=== PATIENT | male | born 1995 | race Two or more races ===

== ENCOUNTER 2023-02-17 21:28 | Emergency (ER) | payer MEDICAID ==
[~2023-02-17] VITALS: Ht 170.2 cm; Wt 99.8 kg
--- NOTE | 2023-02-17 21:53 | NUR ---
Dr. Li at bedside for MSE.
[2023-02-17] MEDS ORDERED: ASPIRIN 81 MG TAB.CHEW ONE (21:54)
[2023-02-17] MEDS ORDERED: ALPRAZOLAM 0.5 MG TABLET ONE (21:55)
[2023-02-17] MEDS ORDERED: ALPRAZOLAM 0.25 MG TABLET PO ONE (22:00)
[2023-02-17] MEDS ORDERED: ASPIRIN 81 MG TAB.CHEW PO ONE (22:00)
[2023-02-17 22:01] LABS: HEMATOCRIT 44.8 % (36.7-47.1); MEAN CORPUSCULAR HEMOGLOBIN 29.5 uug (23.8-33.4); MEAN CORPUSCULAR VOLUME 86.8 fL (73.0-96.2); PLATELET COUNT (AUTO) 254 K/uL (152-348)
[2023-02-17 22:09] LABS: CARBON DIOXIDE 25 mmol/L (21-32); CHLORIDE 101 mmol/L (98-107); GLUCOSE 101 mg/dL (74-106); POTASSIUM 3.6 mmol/L (3.5-5.1); UREA NITROGEN, BLOOD 17 mg/dL (7-18)
[2023-02-17 22:22] LABS: ALANINE AMINOTRANSFERASE 34 U/L (16-63); ALKALINE PHOSPHATASE 89 U/L (50-136); ASPARTATE AMINOTRANSFERASE 8 U/L (15-37); BILIRUBIN,DIRECT 0.1 mg/dL (0.0-0.2); BILIRUBIN,TOTAL 0.5 mg/dL (0.2-1.0); TOTAL PROTEIN, SERUM 7.8 g/dL (6.4-8.2)
--- NOTE | 2023-02-18 00:55 | NUR ---
Patient discharged to home in stable condition. Written and verbal after care instructions given. Patient verbalizes understanding of instructions. Stressed follow up or return to ER for worsening s/s. Patient provided with copies of lab, xray, and ekg results, VSS, no acute signs of distress, all belongings taken.
[2023-02-18 00:56] VITALS: BP 130/75
== END 2023-02-18 00:56 | disposition home or self-care (01) ==
LOC: ER 21:28
DX: R00.2 Palpitations (principal); R07.9 Chest pain, unspecified; R20.2 Paresthesia of skin; R94.31 Abnormal electrocardiogram [ECG] [EKG]; Z88.0 Allergy status to penicillin
CPT/HCPCS: 36415; 71045; 84484; 85025; 93005; A4663

== ENCOUNTER 2023-03-02 13:33 | Emergency (ER) | payer MEDICAID ==
[~2023-03-02] VITALS: Ht 170.2 cm; Wt 99.8 kg
--- NOTE | 2023-03-02 13:52 | NUR ---
V/S 120/66,69, 93%02 98.1 temp
--- NOTE | 2023-03-02 14:10 | NUR ---
seen and examined by MD Verdugo
[2023-03-02 14:37] LABS: HEMATOCRIT 42.8 % (36.7-47.1); MEAN CORPUSCULAR HEMOGLOBIN 29.7 uug (23.8-33.4); MEAN CORPUSCULAR VOLUME 85.6 fL (73.0-96.2); PLATELET COUNT (AUTO) 220 K/uL (152-348)
--- NOTE | 2023-03-02 14:38 | NUR ---
R ESTRADA 20g, labs collected and sent to lab
[2023-03-02 15:01] LABS: CARBON DIOXIDE 28 mmol/L (21-32); CHLORIDE 104 mmol/L (98-107); CREATININE 0.9 mg/dL (0.6-1.3); GLUCOSE 103 mg/dL (74-106); POTASSIUM 3.6 mmol/L (3.5-5.1); UREA NITROGEN, BLOOD 12 mg/dL (7-18)
[2023-03-02 15:05] LABS: BILIRUBIN,DIRECT 0.1 mg/dL (0.0-0.2); BILIRUBIN,TOTAL 0.4 mg/dL (0.2-1.0); TOTAL PROTEIN, SERUM 7.7 g/dL (6.4-8.2)
[2023-03-02 15:11] LABS: THYROID STIMULATING HORMONE 0.602 mIU/mL (0.358-3.740)
[2023-03-02] MEDS ORDERED: LIDOCAINE HCL 1% 20 ML VIAL IJ ONE (15:15)
--- NOTE | 2023-03-02 16:07 | NUR ---
Patient discharged to home in stable condition. Written and verbal after care instructions given. Patient verbalizes understanding of instructions. Stressed follow up or return to ER for worsening s/s.
[2023-03-02 16:21] VITALS: BP 120/77
== END 2023-03-02 16:22 | disposition home or self-care (01) ==
LOC: ER 13:33
DX: R42 Dizziness and giddiness (principal); E78.5 Hyperlipidemia, unspecified; J45.909 Unspecified asthma, uncomplicated; Z88.1 Allergy status to other antibiotic agents
CPT/HCPCS: 36415; 71045; 84443; 84484; 85025; 93005; A4663

== ENCOUNTER 2023-03-15 13:10 | Emergency (ER) | payer MEDICAID ==
[~2023-03-15] VITALS: Ht 170.2 cm; Wt 93.0 kg
[2023-03-15 13:57] LABS: HEMATOCRIT 43.5 % (36.7-47.1); MEAN CORPUSCULAR HEMOGLOBIN 29.1 uug (23.8-33.4); MEAN CORPUSCULAR VOLUME 86.6 fL (73.0-96.2); PLATELET COUNT (AUTO) 221 K/uL (152-348)
--- NOTE | 2023-03-15 14:00 | NUR ---
PT IS IN ROOM #2A. DR QUINONES EVALUATED THE PT.
[2023-03-15 14:15] LABS: CARBON DIOXIDE 26 mmol/L (21-32); CHLORIDE 103 mmol/L (98-107); CREATININE 0.9 mg/dL (0.6-1.3); GLUCOSE 81 mg/dL (74-106); POTASSIUM 3.9 mmol/L (3.5-5.1); UREA NITROGEN, BLOOD 12 mg/dL (7-18)
--- NOTE | 2023-03-15 16:26 | NUR ---
PT WAS D/C'd TO HOME. D/C INSTRUCTIONS GIVEN TO THE PT BY DR QUINONES.
[2023-03-15 16:27] VITALS: BP 132/77
== END 2023-03-15 16:28 | disposition home or self-care (01) ==
LOC: ER 13:10
DX: R07.89 Other chest pain (principal); R00.2 Palpitations; E78.5 Hyperlipidemia, unspecified; Z88.1 Allergy status to other antibiotic agents
CPT/HCPCS: 99285; 71045; 80048; 85025; 84484; 36415; 93005; J7040; A4663

== ENCOUNTER 2023-04-22 20:45 | Emergency (ER) | payer MEDICAID ==
[~2023-04-22] VITALS: Ht 170.2 cm; Wt 93.0 kg
--- NOTE | 2023-04-22 21:10 | NUR ---
Pt is noted in bed alert, responsive as he came from Home C/O Lump to Left Chest taht he notic today. Pt care continue as awaits MD orders.
[2023-04-22 21:38] LABS: HEMATOCRIT 41.2 % (36.7-47.1); MEAN CORPUSCULAR VOLUME 85.8 fL (73.0-96.2); PLATELET COUNT (AUTO) 234 K/uL (152-348)
[2023-04-22 21:50] LABS: CARBON DIOXIDE 27 mmol/L (21-32); CHLORIDE 103 mmol/L (98-107); GLUCOSE 96 mg/dL (74-106); POTASSIUM 3.7 mmol/L (3.5-5.1); UREA NITROGEN, BLOOD 14 mg/dL (7-18)
--- NOTE | 2023-04-22 23:23 | NUR ---
Pt is noted off the unit as he is been discharge to Home with all discharge instructions given with no S/S off dsitress or C/O pain.
[2023-04-22 23:25] VITALS: BP 101/71
== END 2023-04-22 23:26 | disposition home or self-care (01) ==
LOC: ER 20:45
DX: R07.89 Other chest pain (principal); E78.5 Hyperlipidemia, unspecified; Z88.1 Allergy status to other antibiotic agents
CPT/HCPCS: 36415; 71045; 84443; 84484; 85025; 93005; A4663

== ENCOUNTER 2023-12-31 23:09 | Emergency (ER) | payer MEDICAID, OTHER ==
[~2023-12-31] VITALS: Ht 170.2 cm; Wt 81.6 kg
[2023-12-31] MEDS ORDERED: predniSONE 50 MG TABLET ONE (23:22)
[2023-12-31] MEDS ORDERED: ALBU8.5H8 IH (23:23)
[2023-12-31] MEDS ORDERED: PRED20TA PO (23:23)
[2023-12-31] MEDS: predniSONE 50 MG TABLET PO ONE (23:25)
[2024-01-01 00:04] VITALS: BP 118/70; TEMP 97.9; O2SAT 98
== END 2024-01-01 00:04 | disposition home or self-care (01) ==
LOC: ER 23:12
DX: J45.909 Unspecified asthma, uncomplicated (principal); Z76.0 Encounter for issue of repeat prescription; E78.00 Pure hypercholesterolemia, unspecified; Z88.0 Allergy status to penicillin
CPT/HCPCS: 99283; J7512; A4606; A4663

== ENCOUNTER 2024-02-16 22:15 | Emergency (ER) | payer OTHER ==
[~2024-02-16 22:15] MED LIST: ALBU8.5H8 IH; PRED20TA PO
== END 2024-02-17 00:06 | disposition left against medical advice (07) ==
LOC: ER 22:16
DX: R07.89 Other chest pain (principal); Z53.21 Procedure and treatment not carried out due to patient leaving prior to being seen by health care provider

== ENCOUNTER 2024-12-10 14:23 | Emergency (ER) | payer MEDICARE, OTHER ==
[~2024-12-10] VITALS: Ht 170.2 cm; Wt 97.5 kg
[2024-12-10 14:35] VITALS: O2SAT 98
[2024-12-10 15:15] LABS: BASOPHILS # (AUTO) 0.1 K/UL (0.0-0.2); BASOPHILS % (AUTO) 0.7 % (0.0-2.0); EOSINOPHILS # (AUTO) 0.9 K/uL (0.0-0.7); EOSINOPHILS % (AUTO) 9.7 % (0.0-7.0); HEMATOCRIT 44.8 % (36.7-47.1); HEMOGLOBIN 15.6 g/dL (12.5-16.3); LYMPHOCYTES # (AUTO) 3.2 K/uL (0.8-4.8); LYMPHOCYTES % (AUTO) 33.7 % (20.5-51.5); MEAN CORPUSCULAR HEMOGLOBIN 29.9 uug (23.8-33.4); MEAN CORPUSCULAR HGB CONC 35 g/dL (32.5-36.3); MEAN CORPUSCULAR VOLUME 85.4 fL (73.0-96.2); MONOCYTES # (AUTO) 0.7 K/uL (0.1-1.30); MONOCYTES % (AUTO) 7.4 % (0.0-11.0); NEUTROPHILS # (AUTO) 4.6 K/uL (1.8-8.9); NEUTROPHILS % (AUTO) 48.5 % (38.5-71.5); PLATELET COUNT (AUTO) 231 K/uL (152-348); RED BLOOD CELL COUNT(AUTO) 5.24 MIL/uL (4.06-5.63); RED CELL DISTRIBUTION WIDTH 13.1 % (12.1-16.2); WHITE BLOOD COUNT (AUTO) 9.5 K/uL (3.6-10.2)
[2024-12-10 16:09] LABS: DIFFERENTIAL COMMENT 1
[2024-12-10 16:10] LABS: ALANINE AMINOTRANSFERASE 49 U/L (16-63); ALBUMIN 4.2 g/dL (3.4-5.0); ALKALINE PHOSPHATASE 106 U/L (50-136); ASPARTATE AMINOTRANSFERASE 25 U/L (15-37); BILIRUBIN,DIRECT 0.2 mg/dL (0.0-0.2); BILIRUBIN,TOTAL 1.1 mg/dL (0.2-1.0); CALCIUM 9.4 mg/dL (8.5-10.1); CARBON DIOXIDE 28 mmol/L (21-32); CHLORIDE 104 mmol/L (98-107); CREATININE 0.9 mg/dL (0.6-1.3); GLUCOSE 107 mg/dL (74-106); NT-PRO BNP 14 pg/mL (0-125); POTASSIUM 4.1 mmol/L (3.5-5.1); SODIUM SERUM 143 mmol/L (136-145); UREA NITROGEN, BLOOD 16 mg/dL (7-18)
== END 2024-12-10 17:22 | disposition home or self-care (01) ==
LOC: ER 14:23
DX: R07.89 Other chest pain (principal); R00.2 Palpitations; E78.5 Hyperlipidemia, unspecified; J45.909 Unspecified asthma, uncomplicated; Z79.52 Long term (current) use of systemic steroids; Z88.0 Allergy status to penicillin
CPT/HCPCS: 36415; 71045; 84484; 85025; 85730; A4606; A4663

== ENCOUNTER 2025-03-08 21:15 | Emergency (ER) | payer MEDICARE ==
[~2025-03-08] VITALS: Ht 170.2 cm; Wt 97.5 kg
[2025-03-08 21:18] VITALS: O2SAT 97
== END 2025-03-08 22:24 | disposition home or self-care (01) ==
LOC: ER 21:16
DX: R00.2 Palpitations (principal); R20.2 Paresthesia of skin; E78.5 Hyperlipidemia, unspecified; J45.909 Unspecified asthma, uncomplicated; Z79.52 Long term (current) use of systemic steroids; Z88.0 Allergy status to penicillin
CPT/HCPCS: A4606; A4663